=== PATIENT | female | born 1930 | race Caucasian/White ===

== ENCOUNTER 2017-02-18 01:28 | Inpatient (IN) | payer MEDICARE, OTHER ==
[~2017-02-18] VITALS: Ht 165.1 cm; Wt 77.1 kg
[2017-02-18] MEDS ORDERED: Magnesium 1GM/D5W 100ML PREMIX 200 ML IV ONE (01:31)
[2017-02-18] MEDS ORDERED: DEXAMETHASONE SOD PHOSPHATE 10 MG/ML VIAL ONE (01:31)
--- NOTE | 2017-02-18 01:35 | NUR ---
PT RECIVED FROM RA FROM BOARD IN CARE C/O COPD EXACERBATION. EXPIRATORY/INSPIRATORY WHEEZING HEARD ON AUSCULTATION WITH NO PAIN AT THIS MOMENT. BREATHING TX PRIOR TO ARRIVAL FROM RA. A/O X3 ABLE TO MAKE NEEDS KNOWN. WILL CONTINUE TO MONTIOR FOR ANY CHANGES
[2017-02-18] MEDS ORDERED: IPRATROPIUM NEB FS 0.5 MG/2.5 ML AMPUL.NEB ONE ×2 (01:39→02:47)
[2017-02-18] MEDS ORDERED: ALBUTEROL FS 2.5 MG/0.5 ML VIAL.NEB ONE (01:39)
--- NOTE | 2017-02-18 01:40 | NUR ---
EKG DONE AT BEDSIDE
--- NOTE | 2017-02-18 01:40 | NUR ---
PRIOR TO ARRIVAL RIGTH HAND 20G INSERTED.
--- NOTE | 2017-02-18 01:41 | NUR ---
RT AT BEDSIDE FOR BREATHING TX
--- NOTE | 2017-02-18 01:42 | NUR ---
ORDER TO GIVE MAG OVER 10 MINUTES
--- NOTE | 2017-02-18 01:45 | NUR ---
RT AT BEDSIDE FOR VBG DRAW.
--- NOTE | 2017-02-18 01:46 | NUR ---
LAB AT BEDSIDE FOR BLOOD DRAW
--- NOTE | 2017-02-18 01:54 | NUR ---
XRAY AT BEDSIDE
[2017-02-18 01:58] LABS: BASOPHILS % (AUTO) 0.7 % (0.0-2.0); EOSINOPHILS # (AUTO) 0.6 /CMM (0.0-0.7); EOSINOPHILS % (AUTO) 10.9 % (0.0-6.0); HEMATOCRIT 36 % (33-45); HEMOGLOBIN 12.1 g/dL (11.5-14.8); LYMPHOCYTES % (AUTO) 35.1 % (20.0-44.0); MEAN CORPUSCULAR HEMOGLOBIN 29 PG (26.0-33.0); MEAN CORPUSCULAR HGB CONC 34 g/dl (31.0-36.0); MEAN CORPUSCULAR VOLUME 85 fL (82-100); MONOCYTES # (AUTO) 0.4 /CMM (0.1-1.30); MONOCYTES % (AUTO) 7.4 % (2.0-12.0); NEUTROPHILS # (AUTO) 2.6 /CMM (1.8-8.9); NEUTROPHILS % (AUTO) 45.9 % (43.0-81.0); PLATELET COUNT (AUTO) 232 /CMM (150-450); RDW COEFFICIENT OF VARIATION 13.6 (11.5-15.0); RED BLOOD CELL COUNT(AUTO) 4.23 MIL/uL (4.0-5.2); WHITE BLOOD COUNT (AUTO) 5.7 K/uL (4.3-11.0)
[2017-02-18] MEDS ORDERED: Magnesium 1 GM/2 ML VIAL IV ONE (02:00)
[2017-02-18] MEDS ORDERED: PIPERACILLIN /TAZOBACTAM 3.375 G in IV D5W 50 ML IV ONE (02:00)
[2017-02-18] MEDS ORDERED: DEXAMETHASONE SOD PHOSPHATE 10 MG/ML VIAL IV ONE (02:00)
[2017-02-18] MEDS ORDERED: PIPERACILLIN /TAZOBACTAM 3.375 G VIAL IV ONE (02:00)
[2017-02-18] MEDS ORDERED: ALBUTEROL FS 2.5 MG/3 ML VIAL.NEB CONTNEB ONE (02:00)
[2017-02-18] MEDS ORDERED: IPRATROPIUM NEB FS 0.5 MG/2.5 ML AMPUL.NEB NEB ONE (02:00)
[2017-02-18 02:03] LABS: ABG BASE EXCESS -3.5 mmol/L; ABG PH 7.272 (7.350-7.450); ABG PO2 58.3 mmHg (75.0-100.0); COHb 0.8 % (0.5-1.5); MetHb 0.5 % (0.0-1.5); O2Hb 84.9 % (94.0-97.0); SITE, ABG LEFT ARM; VENT MODE, BG TX 5L
--- NOTE | 2017-02-18 02:03 | NUR ---
DAUGHTER AT BEDSIDE
[2017-02-18 02:09] LABS: CALCIUM, SERUM 8.5 mg/dL (8.5-10.1); CARBON DIOXIDE 28 mmol/L (21-32); CHLORIDE 104 mmol/L (98-107); GLUCOSE 113 mg/dL (74-106); POTASSIUM 3.9 mmol/L (3.5-5.1); SODIUM SERUM 141 mmol/L (136-145); UREA NITROGEN, BLOOD 21 mg/dL (7-18)
[2017-02-18 02:18] LABS: TROPONIN I < 0.017 ng/mL (0.00-0.056)
--- NOTE | 2017-02-18 02:38 | NUR ---
DR MENDOZA AT BEDSIDE SPEAKING TO DAUGHTER AND PT REGARDING POC AND RESULTS
--- NOTE | 2017-02-18 02:38 | NUR ---
Thang carver in [facility] - 02/18/[address] MENDOZA AT [facility].
--- NOTE | 2017-02-18 02:40 | NUR ---
PATIENT FAMILY MEMBER NOTIFIED STAFF OF PCN ALLERGY AFTER ZOSYN ADMIN
--- NOTE | 2017-02-18 02:45 | NUR ---
NO ASE NOTED AFTER ZOSYN ADMIN. AWARE
[2017-02-18] MEDS ORDERED: ALBUTEROL FS 2.5 MG/3 ML VIAL.NEB ONE (02:47)
--- NOTE | 2017-02-18 02:49 | NUR ---
RT AT BEDSIDE FOR BREATHING TX
[2017-02-18] MEDS ORDERED: ALBU2SYR PO (03:13)
[2017-02-18] MEDS ORDERED: MONT10TA22 PO (03:13)
[2017-02-18] MEDS ORDERED: HYDR200T4 PO (03:13)
[2017-02-18] MEDS ORDERED: RISP0.253 PO (03:13)
--- NOTE | 2017-02-18 03:13 | NUR ---
CALLED BODY RECALL INSTRUCTOR FOR UPDATE ON BED FOR ADMISSION. WAS INFORMED SHE IS CURRENTLY MOVING BEDS AND STAFF TO ACCOMODATE PT.
--- NOTE | 2017-02-18 03:23 | NUR ---
CALLED LAB SECOND TIME FOR INFLUENZA SWAB GUIDE DOG MOBILITY INSTRUCTOR.
[2017-02-18] MEDS ORDERED: MAGNESIUM HYDROXIDE 30 ML UDC PO PRN (03:30)
[2017-02-18] MEDS ORDERED: Z GUARD REMEDY 2 OZ OINT TP PRN (03:30)
[2017-02-18] MEDS ORDERED: HYDROCODONE/APAP 5/325MG 1 EACH TABLET PO PRN (03:30)
[2017-02-18] MEDS ORDERED: LEVOFLOXACIN 750 MG /D5W 150ML 750 MG in PREMIX 1 EA IV SCH (03:30)
[2017-02-18] MEDS ORDERED: ACETAMINOPHEN 325 MG TABLET PO PRN (03:30)
[2017-02-18] MEDS ORDERED: IPRATROPIUM NEB FS 0.5 MG/2.5 ML AMPUL.NEB NEB PRN (03:30)
[2017-02-18] MEDS ORDERED: ONDANSETRON HCL/PF 4 MG/2 ML VIAL IVP PRN (03:30)
[2017-02-18] MEDS ORDERED: ALBUTEROL FS 2.5 MG/0.5 ML VIAL.NEB NEB PRN (03:30)
[2017-02-18] MEDS ORDERED: ZOLPIDEM TARTRATE 5 MG TABLET PO PRN (03:30)
--- NOTE | 2017-02-18 04:12 | NUR ---
PT ASSIGNED TO [facility] [phone]
[2017-02-18 04:35] VITALS: BP 141/57
--- NOTE | 2017-02-18 04:35 | NUR ---
MUSIC INTERN OPENING NOTES: RECEIVED PT AND IS A/OX2-3. PT HAS IV ON L HAND #20G AND IS PATENT AND INTACT. PT CURRENTLY S/L. DAUGHTER AT BEDSIDE. PT IS ON TELE MONITOR. PT HAS DIAPER ON. BED ALARM ACTIVATED. PT ON 1LPM VIA NC AND IS TOLERATING WELL. CALL LIGHT WITHIN PT'S REACH. BED KEPT IN SEMI-CHOPRA'S POSITION. BED KEPT IN LOW, LOCKED POSITION, AND SIDE RAILS X 2 UP. WILL CONTINUE TO MONITOR PT.
[2017-02-18 04:45] VITALS: BP 141/57
--- NOTE | 2017-02-18 04:46 | NUR ---
REPORT GIVEN AND PT TRANSFERRED TO [facility].
[2017-02-18] MEDS ORDERED: LEVOFLOXACIN 750 MG /D5W 150ML 150 ML IV ONE (04:56)
[2017-02-18] MEDS ORDERED: methylPREDNISolone SOD SUCC 40 MG/ML VIAL ONE (06:11)
--- NOTE | 2017-02-18 06:18 | NUR ---
NANOELECTRONICS ENGINEER NOTES: HAD TO MANUALLY ADMIN SOLUMEDROL. NO SCANNING. WAS OVERRIDDEN BY CHARGE NURSE. WILL CONTINUE TO MONITOR.
[2017-02-18] MEDS: methylPREDNISolone SOD SUCC 125 MG/2ML VIAL IV SCH ×4 (06:19→23:49)
--- NOTE | 2017-02-18 07:30 | NUR ---
TELE/RN PATIENT RECEIVED PATIENT RECEIVED BED IN BED AWAKE. ALERT AND ORIENTED X3 WITH EPISODES OF FORGETFULNESS. RESPIRATION REGULAR AND UNLABORED. DENIES SOB AND PAIN AT THIS TIME. SR AT 100. IN NO APPARENT DISTRESS. LEFT WRIST #20 PATIENT AND NO S/SX INFILTRATION NOTED. BED LOW AND LOCKED. SIDE RAIL X2 IN UPRIGHT POSITION. CALL LIGHT WITHIN REACH. WILL CONTINUE TO MONITOR.
--- NOTE | 2017-02-18 07:30 | NUR ---
ELEMENTARY EDUCATOR CLOSING NOTES: ALL NEEDS WERE ATTENDED AND ANTICIPATED FOR. PT IS A/OX2 WITH PERIODS OF CONFUSION. REORIENTED MULTIPLE TIMES. PT HAS IV ON L HAND #20G AND IS PATENT AND INTACT. PT CURRENTLY S/L. PT IS ON TELE MONITOR. READING SHOWS SINUS RHYTHM. PT HAS DIAPER ON. BED ALARM ACTIVATED. PT ON 1LPM VIA NC AND IS TOLERATING WELL. CALL LIGHT WITHIN PT'S REACH. BED KEPT IN SEMI-CHOPRA'S POSITION. BED KEPT IN LOW, LOCKED POSITION, AND SIDE RAILS X 2 UP. BED ALARM ACTIVATED. ENDORSED TO AM NURSE FOR MAGGI.
[2017-02-18 08:00] VITALS: BP 160/66
--- NOTE | 2017-02-18 09:00 | NUR ---
TELE/RN Meds given 9:00 AM due medications given as ordered. No ASE noted. The patient in stable condition.
[2017-02-18 12:00] VITALS: BP 148/69
[2017-02-18 16:00] VITALS: BP 168/82
[2017-02-18] MEDS ORDERED: ENOXAPARIN SODIUM 30 MG/0.3 ML DISP.SYRIN SQ SCH (18:00)
--- NOTE | 2017-02-18 18:26 | NUR ---
RN CLOSING NOTE PATIENT IN BED AND AWAKE. ALERT AND ORIENTED X3 WITH EPISODES OF CONFUSION. RESPIRATION REGULAR AND UNLABORED. DENIES SOB, PAIN AT THIS TIME. IN NO APPARENT DISTRESS. BED ALARM ON. SIDE RAIL X2 IN UPRIGHT POSITION. BED LOW AND LOCKED. CALL LIGHT WITHIN REACH. WILL ENDORSE TO SUPERINTENDENT TRACK.
--- NOTE | 2017-02-18 19:45 | NUR ---
RN OPENING NOTES RECEIVED REPORT FROM VALERY RNRUFUS. FOUND Pt AWAKE, RESTING IN BED, WATCHING TV. NO S/S OF ACUTE DISTRESS OR SOB NOTED. NO C/O PAIN AT THIS TIME. Pt IS A/OX3, FORGETFUL AT TIMES, VERBAL, ABLE TO MAKE NEEDS KNOWN. IV ACCESS ON LWRIST #20G, SL. SAFETY MEASURES IN PLACE. BED LOW, LOCKED, HOB ELEVATED, SIDE RAILS UP, CALL LIGHT AND BED SIDE TABLE WITHIN REACH. WILL CONTINUE TO MONITOR Pt THROUGHOUT THE NIGHT FOR SAFETY.
[2017-02-18 20:00] VITALS: BP 139/71
[2017-02-18] MEDS: MAG HYDROX/AL HYDROX/SIMETH 30 ML UDC PO PRN (23:51)
[2017-02-19] MEDS ORDERED: risperiDONE 0.25 MG TABLET PO PRN (01:30)
--- NOTE | 2017-02-19 06:43 | NUR ---
RN CLOSING NOTES NO SIGNIFICANT CHANGES IN Pt's CONDITION. Pt REMAINS STABLE AT THIS TIME. NO S/S OF ACUTE DISTRESS OR SOB NOTED DURING SHIFT. ALL NEEDS MET AND ATTENDED TO. SAFETY MEASURES IN PLACE. WILL ENDORSE TO DAYSHIFT RN FOR Pt's MAGGI.
--- NOTE | 2017-02-19 07:30 | NUR ---
MS/RN OPENING NOTE PATIENT RECEIVED IN BED AWAKE. ALERT AND ORIENTED TO PERSON AND PLACE. NOTED WITH EPISODES OF FORGETFULNESS AND CONFUSION. REDIRECTION AND REORIENTATION PROVIDED. RESPIRATION REGULAR AND UNLABORED. DENIES SOB. DENIES PAIN AT THIS TIME. IN NO APPARENT DISRTESS. IV ON LEFT WRITE MALFUNCTIONING, WILL START A NEW LINE.BED LOW AND LOCKED. SIDE RAIL X2 UP. CALL LIGHT WITHIN REACH. WILL CONTINUE TO MONITOR.
[2017-02-19 08:50] LABS: BASOPHILS % (AUTO) 0.1 % (0.0-2.0); HEMATOCRIT 34 % (33-45); HEMOGLOBIN 11.6 g/dL (11.5-14.8); LYMPHOCYTES # (AUTO) 0.8 /CMM (0.8-4.8); LYMPHOCYTES % (AUTO) 8.3 % (20.0-44.0); MEAN CORPUSCULAR HEMOGLOBIN 29 PG (26.0-33.0); MEAN CORPUSCULAR HGB CONC 34 g/dl (31.0-36.0); MEAN CORPUSCULAR VOLUME 84 fL (82-100); MONOCYTES # (AUTO) 0.4 /CMM (0.1-1.30); MONOCYTES % (AUTO) 4.1 % (2.0-12.0); NEUTROPHILS # (AUTO) 8.3 /CMM (1.8-8.9); NEUTROPHILS % (AUTO) 87.5 % (43.0-81.0); PLATELET COUNT (AUTO) 222 /CMM (150-450); RDW COEFFICIENT OF VARIATION 13.6 (11.5-15.0); RED BLOOD CELL COUNT(AUTO) 4.06 MIL/uL (4.0-5.2); WHITE BLOOD COUNT (AUTO) 9.5 K/uL (4.3-11.0)
[2017-02-19] MEDS ORDERED: predniSONE 20 MG TABLET PO SCH (09:00)
[2017-02-19] MEDS ORDERED: HYDROXYCHLOROQUINE 200 MG TABLET PO SCH (09:00)
[2017-02-19] MEDS ORDERED: LEVOFLOXACIN 750 MG /D5W 150ML 750 MG in PREMIX 1 EA IV SCH (09:00)
--- NOTE | 2017-02-19 09:01 | NUR ---
MS/RN MEDS GIVEN NEW IV LINE STARTED. DUE MEDS GIVEN ORDERED. NO ASE NOTED.
[2017-02-19 09:08] LABS: CHOLESTEROL 170 mg/dL (<200); HDL CHOLESTEROL 68 mg/dL (40-60); LDL 91 mg/dL (0-99); TRIGLYCERIDES 60 mg/dL (30-150)
[2017-02-19 09:10] LABS: CALCIUM, SERUM 9.1 mg/dL (8.5-10.1); CARBON DIOXIDE 28 mmol/L (21-32); CHLORIDE 101 mmol/L (98-107); GLUCOSE 164 mg/dL (74-106); MAGNESIUM 2.2 mg/dL (1.8-2.4); PHOSPHORUS 2.9 mg/dL (2.5-4.9); POTASSIUM 4.3 mmol/L (3.5-5.1); SODIUM SERUM 137 mmol/L (136-145); UREA NITROGEN, BLOOD 31 mg/dL (7-18)
--- NOTE | 2017-02-19 10:45 | NUR ---
MS/RN ROOM CHANGE PATIENT ALERT AND VERBALLY RESPONSIVE. RESPIRATION REGULAR AND UNLABORED. NO COMPLIANT OF SOB, PAIN AT THIS TIME. THE PATIENT IN STABLE CONDITION. PATIENT IS TRANSFER TO [facility] AND REPORT GIVEN TO THE NURSE.
[2017-02-19 10:58] VITALS: BP 159/68
[2017-02-19] MEDS ORDERED: ALBUTEROL SULFATE 2 MG TABLET PO SCH (13:00)
[2017-02-19] MEDS ORDERED: AZIT1PAC9 PO (14:25)
[2017-02-19] MEDS: MAG HYDROX/AL HYDROX/SIMETH 30 ML UDC PO PRN (14:57)
[2017-02-19] MEDS ORDERED: LEVO500T75 PO (16:13)
--- NOTE | 2017-02-19 16:52 | NUR ---
M/S RN - Discharge Pt feeling better, discharged to [facility] in stable condition. Reviewed discharge instructions with Flaca (Oven Baker) and she verbalized full understanding of all teachings including medication management and f/u appt made care with her PMD in 3 days. Written prescription given to pt. Per Jazmin, fax prescription to [facility] [phone]. Prescription faxed and was received. All belongings with pt and she denies any missing items. VSS, denies pain, no c/o SOB, tolerating room air, no apparent distress seen. Heplock removed on the LFA with catheter tip intact, no redness and no swelling noted at the site. Skin is intact except for right arm bruise (healing), pt refused photo to be taken. Discharge papers signed and copy was given per protocol. Accompanied to the lobby via wheelchair and transported by private car. Daughter Lois notified of discharge.
[2017-02-19] MEDS ORDERED: MONTELUKAST SODIUM (10MG) 10 MG TABLET PO SCH (22:00)
== END 2017-02-19 16:45 | disposition home or self-care (01) | DRG 189 ==
LOC: ER 01:31 → TELE 04:14 → MED 13:41 → MEDSG2 02-19 10:30
DX: J96.01 Acute respiratory failure with hypoxia (principal); J44.0 Chronic obstructive pulmonary disease with (acute) lower respiratory infection; J44.1 Chronic obstructive pulmonary disease with (acute) exacerbation; K21.9 Gastro-esophageal reflux disease without esophagitis; J96.02 Acute respiratory failure with hypercapnia; E78.5 Hyperlipidemia, unspecified; I10 Essential (primary) hypertension; Z87.891 Personal history of nicotine dependence; I70.90 Unspecified atherosclerosis; J20.9 Acute bronchitis, unspecified
CPT/HCPCS: 36415; 36600; 71010-TC; 80048-TC; 80061-TC; 83735-TC; 84100-TC; 84443-TC; 84484-TC; 85025-TC; 87081-TC; 87400; A4216; A4606; J1100; J1650; J1956; J2543; J2920; J2930; J3475; J7050; J7060; Z7610